=== PATIENT | female | born 1955 | race Caucasian/White ===

== ENCOUNTER 2017-06-20 13:23 | Inpatient (IN) | payer MEDICAID ==
[2017-06-20] MEDS: SOD CHLORIDE 0.9% 1,000 ML IV ×3 (14:40→22:32)
[2017-06-20 14:53] LABS: ADD MAN DIFF? NO
[2017-06-20 14:55] LABS: BASOPHIL # 0.1 10^3/ul (0.0-0.1); BASOPHILS % 0.9 % (0.0-2.0); EOSINOPHILS % 16.5 % (0.0-7.0); HEMATOCRIT 43.4 % (37.0-47.0); HEMOGLOBIN 14.1 g/dl (12.0-16.0); LYMPHOCYTES % 17.2 % (15.0-51.0); MEAN CORPUSCULAR HEMOGLOBIN 27.3 pg (29.0-33.0); MEAN CORPUSCULAR HGB CONC 32.5 g/dl (32.0-37.0); MEAN CORPUSCULAR VOLUME 84.1 fl (82.0-101.0); MEAN PLATELET VOLUME 11.8 fl (7.4-10.4); MONOCYTE # 0.3 10^3/ul (0.3-0.9); MONOCYTES % 5.7 % (0.0-11.0); NEUTROPHIL # 3.5 10^3/ul (1.6-7.5); NEUTROPHILS % 59.4 % (39.0-77.0); PLATELET COUNT 265 10^3/UL (140-415); RED BLOOD COUNT 5.16 10^6/ul (4.20-5.40); RED CELL DISTRIBUTION WIDTH 12.6 % (11.5-14.5)
[2017-06-20 14:55] LABS: WHITE BLOOD COUNT 5.8 10^3/ul (4.8-10.8)
[2017-06-20 15:01] LABS: ADD UMIC YES; UR ASCORBIC ACID NEGATIVE (NEGATIVE); UR BACTERIA FEW /HPF (NONE SEEN); UR BILIRUBIN (Dip) NEGATIVE (NEGATIVE); UR BLOOD (Dip) NEGATIVE (NEGATIVE); UR CLARITY CLEAR (CLEAR); UR COLOR YELLOW (YELLOW); UR GLUCOSE (Dip) 3+ mg/dL (NEGATIVE); UR KETONES (Dip) NEGATIVE (NEGATIVE); UR LEUKOCYTE ESTERASE (Dip) TRACE Leu/ul (NEGATIVE); UR NITRITE (Dip) NEGATIVE (NEGATIVE); UR RBC 1 /HPF (0-5); UR SQUAMOUS EPITHELIAL CELL FEW /HPF (FEW); UR TOTAL PROTEIN (Dip) NEGATIVE (NEGATIVE); UR UROBILINOGEN (Dip) NEGATIVE (NEGATIVE); UR WBC 1 /HPF (0-5)
[2017-06-20 15:17] LABS: ALANINE AMINOTRANSFERASE 27 IU/L (13-69); ALBUMIN 4.7 g/dl (3.3-4.9); ALBUMIN/GLOBULIN RATIO 1.23; ALKALINE PHOSPHATASE 180 IU/L (42-121); ANION GAP 19 (8-16); ASPARTATE AMINO TRANSFERASE 21 IU/L (15-46); BILIRUBIN,INDIRECT 0.2 mg/dl (0-1.1); BILIRUBIN,TOTAL 0.2 mg/dl (0.2-1.3); BLOOD UREA NITROGEN 15 mg/dl (7-20); CALCIUM 10.1 mg/dl (8.4-10.2); CARBON DIOXIDE 31 mmol/L (21-31); CHLORIDE 94 mmol/L (97-110); CREATININE 0.55 mg/dl (0.44-1.00); LIPASE 1063 U/L (23-300); POTASSIUM 4.4 mmol/L (3.5-5.1); SODIUM 140 mmol/L (135-144); TOTAL PROTEIN 8.5 g/dl (6.1-8.1)
[2017-06-20 15:19] LABS: GLUCOSE 504 mg/dl (70-220)
[2017-06-20 15:34] LABS: TROPONIN-I < 0.012 ng/ml (0.00-0.12)
[2017-06-20] MEDS: FENTAnyl 50 MCG/ML VIAL IV (17:56)
[2017-06-20 18:37] LABS: LACTATE DEHYDROGENASE 577 IU/L (313-618)
[2017-06-20] MEDS ORDERED: IOHEXOL 300MG/ML 150 ML BTL (19:16)
[2017-06-20] MEDS ORDERED: SOD CHLORIDE 0.9% 100 ML (19:16)
[2017-06-20] MEDS ORDERED: ACETAMINOPHEN 325 MG TAB PO (20:00)
[2017-06-20] MEDS ORDERED: ONDANSETRON 4 MG INJ IV (20:00)
[2017-06-20] MEDS ORDERED: BISACODYL (EC) 5 MG TAB PO (21:30)
[2017-06-20] MEDS ORDERED: NACL 0.9% 3 ML SYG IV (21:30)
[2017-06-20] MEDS ORDERED: MAGNESIUM HYDROXIDE 30ML CUP PO (21:30)
[2017-06-20] MEDS ORDERED: BISACODYL 10 MG SUPP PR (21:30)
[2017-06-20] MEDS ORDERED: METOCLOPRAMIDE 10 MG INJ IV (21:30)
[2017-06-20] MEDS ORDERED: DOCUSATE SODIUM 100 MG CAP PO (21:30)
[2017-06-20 21:53] LABS: HEMOGLOBIN A1C 12.1 % (0-5.9)
[2017-06-20] MEDS: ACETAMINOPHEN 325 MG TAB PO (22:31)
[2017-06-21] MEDS ORDERED: DEXTROSE 50% 50 ML SYRINGE IV ×2 (04:30)
[2017-06-21] MEDS ORDERED: GLUCOSE GEL 15 GRAM TUBE BUCCAL (04:30)
[2017-06-21] MEDS ORDERED: GLUCOSE GEL 15 GRAM TUBE PO ×2 (04:30)
[2017-06-21] MEDS ORDERED: GLUCAGON 1 MG INJ IM (04:30)
[2017-06-21 05:58] LABS: ADD MAN DIFF? NO
[2017-06-21 06:15] LABS: WHITE BLOOD COUNT 6.2 10^3/ul (4.8-10.8)
[2017-06-21 06:15] LABS: BASOPHIL # 0.1 10^3/ul (0.0-0.1); BASOPHILS % 0.8 % (0.0-2.0); EOSINOPHILS # 0.9 10^3/ul (0.0-0.5); EOSINOPHILS % 14.2 % (0.0-7.0); HEMATOCRIT 39.4 % (37.0-47.0); HEMOGLOBIN 13.3 g/dl (12.0-16.0); LYMPHOCYTES # 1.3 10^3/ul (0.8-2.9); LYMPHOCYTES % 21.5 % (15.0-51.0); MEAN CORPUSCULAR HEMOGLOBIN 27.8 pg (29.0-33.0); MEAN CORPUSCULAR HGB CONC 33.8 g/dl (32.0-37.0); MEAN CORPUSCULAR VOLUME 82.3 fl (82.0-101.0); MEAN PLATELET VOLUME 11.6 fl (7.4-10.4); MONOCYTE # 0.4 10^3/ul (0.3-0.9); MONOCYTES % 6.5 % (0.0-11.0); NEUTROPHIL # 3.5 10^3/ul (1.6-7.5); NEUTROPHILS % 56.7 % (39.0-77.0); PLATELET COUNT 244 10^3/UL (140-415); RED BLOOD COUNT 4.79 10^6/ul (4.20-5.40); RED CELL DISTRIBUTION WIDTH 12.7 % (11.5-14.5)
[2017-06-21] MEDS: SOD CHLORIDE 0.9% 1,000 ML IV (06:32)
[2017-06-21 07:57] LABS: ALANINE AMINOTRANSFERASE 26 IU/L (13-69); ALBUMIN 3.6 g/dl (3.3-4.9); ALBUMIN/GLOBULIN RATIO 1.16; ALKALINE PHOSPHATASE 134 IU/L (42-121); ANION GAP 11 (8-16); ASPARTATE AMINO TRANSFERASE 20 IU/L (15-46); BILIRUBIN,INDIRECT 0.3 mg/dl (0-1.1); BILIRUBIN,TOTAL 0.3 mg/dl (0.2-1.3); BLOOD UREA NITROGEN 8 mg/dl (7-20); CARBON DIOXIDE 28 mmol/L (21-31); CHLORIDE 105 mmol/L (97-110); CREATININE 0.42 mg/dl (0.44-1.00); GLUCOSE 274 mg/dl (70-220); MAGNESIUM 1.7 mg/dl (1.7-2.5); PHOSPHORUS 3.1 mg/dl (2.5-4.9); POTASSIUM 3.8 mmol/L (3.5-5.1); SODIUM 140 mmol/L (135-144); TOTAL PROTEIN 6.7 g/dl (6.1-8.1)
[2017-06-21] MEDS ORDERED: INSULIN GLARGINE [LANtus] 3 ML PEN SC (08:00)
[2017-06-21] MEDS: PREGABALIN 75 MG CAP PO (08:12)
[2017-06-21] MEDS: GABAPENTIN 100 MG CAP PO ×2 (08:12→20:37)
[2017-06-21] MEDS: HYDROCHLOROTHIAZIDE 25 MG TAB PO (08:15)
[2017-06-21] MEDS: ENOXAPARIN 40 MG/0.4 ML SYG SC (08:16)
[2017-06-21] MEDS: INSULIN GLARGINE [LANtus] 3 ML PEN SC (09:47)
[2017-06-21] MEDS: INSULIN ASPART [NOVOLOG] 3 ML PEN SC ×7 (09:47→20:39)
[2017-06-21] MEDS: DEXTROSE 5%-0.45% NACL 1,000 ML IV ×2 (12:25→21:30)
[2017-06-21] MEDS: CIPROFLOXACIN 400MG/D5W 200 ML IVPB ×2 (12:25→20:39)
[2017-06-21] MEDS: metroNIDAZOLE 500 MG/NS (PMX) 100 ML IVPB ×2 (13:36→22:33)
[2017-06-21] MEDS: PANTOPRAZOLE 40 MG INJ IV (13:36)
[2017-06-21] MEDS: FAMOTIDINE 20 MG INJ IV (13:36)
[2017-06-21] MEDS: HYDROCODONE/APAP (5/325) TAB PO (17:27)
[2017-06-21] MEDS: hydrALAzine 20 MG INJ IV (19:55)
[2017-06-21] MEDS: ATORVASTATIN 10 MG TAB PO (20:37)
[2017-06-21] MEDS: ACETAMINOPHEN 325 MG TAB PO (20:45)
[2017-06-22] MEDS: ACCU-CHEK XX (02:00)
[2017-06-22] MEDS: PANTOPRAZOLE 40 MG INJ IV (05:37)
[2017-06-22] MEDS: metroNIDAZOLE 500 MG/NS (PMX) 100 ML IVPB ×3 (05:37→22:26)
[2017-06-22 05:41] LABS: ADD MAN DIFF? NO
[2017-06-22 05:54] LABS: BASOPHILS % 0.4 % (0.0-2.0); EOSINOPHILS # 0.7 10^3/ul (0.0-0.5); EOSINOPHILS % 7.8 % (0.0-7.0); HEMATOCRIT 40.8 % (37.0-47.0); HEMOGLOBIN 13.6 g/dl (12.0-16.0); LYMPHOCYTES # 1.1 10^3/ul (0.8-2.9); LYMPHOCYTES % 12.1 % (15.0-51.0); MEAN CORPUSCULAR HEMOGLOBIN 27.4 pg (29.0-33.0); MEAN CORPUSCULAR HGB CONC 33.3 g/dl (32.0-37.0); MEAN CORPUSCULAR VOLUME 82.3 fl (82.0-101.0); MEAN PLATELET VOLUME 11.5 fl (7.4-10.4); MONOCYTE # 0.4 10^3/ul (0.3-0.9); MONOCYTES % 4.2 % (0.0-11.0); NEUTROPHIL # 6.8 10^3/ul (1.6-7.5); NEUTROPHILS % 75.3 % (39.0-77.0); PLATELET COUNT 261 10^3/UL (140-415); RED BLOOD COUNT 4.96 10^6/ul (4.20-5.40); RED CELL DISTRIBUTION WIDTH 12.8 % (11.5-14.5)
[2017-06-22 06:15] LABS: MAGNESIUM 1.5 mg/dl (1.7-2.5)
[2017-06-22 06:17] LABS: ALANINE AMINOTRANSFERASE 28 IU/L (13-69); ALBUMIN 3.8 g/dl (3.3-4.9); ALBUMIN/GLOBULIN RATIO 1.22; ALKALINE PHOSPHATASE 118 IU/L (42-121); ANION GAP 13 (8-16); ASPARTATE AMINO TRANSFERASE 19 IU/L (15-46); BILIRUBIN,INDIRECT 0.2 mg/dl (0-1.1); BILIRUBIN,TOTAL 0.2 mg/dl (0.2-1.3); BLOOD UREA NITROGEN 9 mg/dl (7-20); CALCIUM 9.3 mg/dl (8.4-10.2); CARBON DIOXIDE 27 mmol/L (21-31); CHLORIDE 99 mmol/L (97-110); CREATININE 0.55 mg/dl (0.44-1.00); GLUCOSE 305 mg/dl (70-220); POTASSIUM 3.7 mmol/L (3.5-5.1); SODIUM 135 mmol/L (135-144); TOTAL PROTEIN 6.9 g/dl (6.1-8.1)
[2017-06-22] MEDS: INSULIN GLARGINE [LANtus] 3 ML PEN SC ×2 (08:10→18:08)
[2017-06-22] MEDS: INSULIN ASPART [NOVOLOG] 3 ML PEN SC ×7 (08:11→21:09)
[2017-06-22] MEDS: DEXTROSE 5%-0.45% NACL 1,000 ML IV ×2 (09:45→17:30)
[2017-06-22] MEDS: CIPROFLOXACIN 400MG/D5W 200 ML IVPB ×2 (09:45→20:59)
[2017-06-22] MEDS: HYDROCHLOROTHIAZIDE 25 MG TAB PO (09:45)
[2017-06-22] MEDS: GABAPENTIN 100 MG CAP PO ×2 (09:45→20:59)
[2017-06-22] MEDS: PREGABALIN 75 MG CAP PO (09:45)
[2017-06-22] MEDS: ENOXAPARIN 40 MG/0.4 ML SYG SC (09:48)
[2017-06-22] MEDS: MAGNESIUM SULFATE 2 GM/50 ML 50 ML IVPB (11:53)
[2017-06-22] MEDS: ONDANSETRON 4 MG TAB PO (11:53)
[2017-06-22] MEDS: HYDROCODONE/APAP (5/325) TAB PO (19:51)
[2017-06-22] MEDS: ATORVASTATIN 10 MG TAB PO (20:59)
[2017-06-23] MEDS: DEXTROSE 5%-0.45% NACL 1,000 ML IV ×3 (01:25→05:07)
[2017-06-23] MEDS: ACCU-CHEK XX (02:00)
[2017-06-23] MEDS: metroNIDAZOLE 500 MG/NS (PMX) 100 ML IVPB ×2 (05:30→14:01)
[2017-06-23] MEDS: PANTOPRAZOLE 40 MG INJ IV (05:30)
[2017-06-23 05:49] LABS: ADD MAN DIFF? NO
[2017-06-23 05:58] LABS: BASOPHILS % 0.7 % (0.0-2.0); EOSINOPHILS # 0.7 10^3/ul (0.0-0.5); EOSINOPHILS % 12.5 % (0.0-7.0); HEMATOCRIT 39.7 % (37.0-47.0); HEMOGLOBIN 13.4 g/dl (12.0-16.0); LYMPHOCYTES # 1.6 10^3/ul (0.8-2.9); LYMPHOCYTES % 28.2 % (15.0-51.0); MEAN CORPUSCULAR HEMOGLOBIN 27.9 pg (29.0-33.0); MEAN CORPUSCULAR HGB CONC 33.8 g/dl (32.0-37.0); MEAN CORPUSCULAR VOLUME 82.5 fl (82.0-101.0); MEAN PLATELET VOLUME 10.9 fl (7.4-10.4); MONOCYTE # 0.6 10^3/ul (0.3-0.9); MONOCYTES % 10.6 % (0.0-11.0); NEUTROPHIL # 2.8 10^3/ul (1.6-7.5); NEUTROPHILS % 47.8 % (39.0-77.0); PLATELET COUNT 246 10^3/UL (140-415); RED BLOOD COUNT 4.81 10^6/ul (4.20-5.40); RED CELL DISTRIBUTION WIDTH 12.4 % (11.5-14.5)
[2017-06-23 05:58] LABS: WHITE BLOOD COUNT 5.8 10^3/ul (4.8-10.8)
[2017-06-23 06:16] LABS: ANION GAP 14 (8-16); BLOOD UREA NITROGEN 10 mg/dl (7-20); CALCIUM 9.1 mg/dl (8.4-10.2); CARBON DIOXIDE 29 mmol/L (21-31); CHLORIDE 98 mmol/L (97-110); CREATININE 0.59 mg/dl (0.44-1.00); GLUCOSE 275 mg/dl (70-220); MAGNESIUM 1.7 mg/dl (1.7-2.5); PHOSPHORUS 3.3 mg/dl (2.5-4.9); POTASSIUM 3.5 mmol/L (3.5-5.1); SODIUM 137 mmol/L (135-144)
[2017-06-23 06:46] LABS: AMYLASE 36 U/L (11-123)
[2017-06-23 06:46] LABS: LIPASE 97 U/L (23-300)
[2017-06-23] MEDS: HYDROCODONE/APAP (5/325) TAB PO (08:20)
[2017-06-23] MEDS: PREGABALIN 75 MG CAP PO (08:20)
[2017-06-23] MEDS: GABAPENTIN 100 MG CAP PO ×2 (08:20→20:48)
[2017-06-23] MEDS: CIPROFLOXACIN 400MG/D5W 200 ML IVPB (08:20)
[2017-06-23] MEDS: HYDROCHLOROTHIAZIDE 25 MG TAB PO (08:21)
[2017-06-23] MEDS: INSULIN ASPART [NOVOLOG] 3 ML PEN SC ×7 (08:29→20:49)
[2017-06-23] MEDS: ENOXAPARIN 40 MG/0.4 ML SYG SC (08:29)
[2017-06-23] MEDS: INSULIN GLARGINE [LANtus] 3 ML PEN SC (08:30)
[2017-06-23] MEDS: ONDANSETRON 4 MG INJ IV (15:31)
[2017-06-23] MEDS: morphine 2 MG INJ IV (16:31)
[2017-06-23] MEDS ORDERED: MAGNESIUM CITRATE 300 ML BTL PO (17:30)
[2017-06-23] MEDS: BISACODYL (EC) 5 MG TAB PO (17:51)
[2017-06-23] MEDS: CIPROFLOXACIN 500 MG TAB PO (17:51)
[2017-06-23] MEDS: POLYETHYLENE GLYCOL 3350 119 GM POWDER PO (19:10)
[2017-06-23] MEDS: MAGNESIUM CITRATE 300 ML BTL PO (19:10)
[2017-06-23] MEDS: metroNIDAZOLE 500 MG TAB PO (20:45)
[2017-06-23] MEDS: ATORVASTATIN 10 MG TAB PO (20:46)
[2017-06-24] MEDS: ACCU-CHEK XX (02:00)
[2017-06-24] MEDS: POLYETHYLENE GLYCOL 3350 119 GM POWDER PO (06:12)
[2017-06-24] MEDS: PANTOPRAZOLE (EC) 40 MG TAB PO (06:12)
[2017-06-24] MEDS: CIPROFLOXACIN 500 MG TAB PO ×2 (06:26→20:33)
[2017-06-24 07:14] LABS: ADD MAN DIFF? NO
[2017-06-24 07:20] LABS: BASOPHIL # 0.1 10^3/ul (0.0-0.1); BASOPHILS % 0.8 % (0.0-2.0); EOSINOPHILS # 0.6 10^3/ul (0.0-0.5); EOSINOPHILS % 9.4 % (0.0-7.0); HEMATOCRIT 37.1 % (37.0-47.0); HEMOGLOBIN 12.6 g/dl (12.0-16.0); LYMPHOCYTES # 1.8 10^3/ul (0.8-2.9); LYMPHOCYTES % 26.7 % (15.0-51.0); MEAN CORPUSCULAR HEMOGLOBIN 27.9 pg (29.0-33.0); MEAN CORPUSCULAR VOLUME 82.1 fl (82.0-101.0); MEAN PLATELET VOLUME 11.4 fl (7.4-10.4); MONOCYTE # 0.6 10^3/ul (0.3-0.9); MONOCYTES % 8.4 % (0.0-11.0); NEUTROPHIL # 3.6 10^3/ul (1.6-7.5); NEUTROPHILS % 54.5 % (39.0-77.0); PLATELET COUNT 240 10^3/UL (140-415); RED BLOOD COUNT 4.52 10^6/ul (4.20-5.40); RED CELL DISTRIBUTION WIDTH 12.6 % (11.5-14.5)
[2017-06-24 07:20] LABS: WHITE BLOOD COUNT 6.6 10^3/ul (4.8-10.8)
[2017-06-24 07:47] LABS: ANION GAP 12 (8-16); BLOOD UREA NITROGEN 10 mg/dl (7-20); CALCIUM 9.4 mg/dl (8.4-10.2); CARBON DIOXIDE 28 mmol/L (21-31); CHLORIDE 101 mmol/L (97-110); CREATININE 0.56 mg/dl (0.44-1.00); GLUCOSE 165 mg/dl (70-220); MAGNESIUM 1.9 mg/dl (1.7-2.5); PHOSPHORUS 4.1 mg/dl (2.5-4.9); POTASSIUM 3.1 mmol/L (3.5-5.1); SODIUM 138 mmol/L (135-144)
[2017-06-24] MEDS: INSULIN ASPART [NOVOLOG] 3 ML PEN SC ×7 (08:15→20:33)
[2017-06-24] MEDS: GABAPENTIN 100 MG CAP PO ×2 (08:31→20:33)
[2017-06-24] MEDS: HYDROCHLOROTHIAZIDE 25 MG TAB PO (08:31)
[2017-06-24] MEDS: metroNIDAZOLE 500 MG TAB PO ×3 (08:31→20:33)
[2017-06-24] MEDS: BISACODYL (EC) 5 MG TAB PO (08:31)
[2017-06-24] MEDS: PREGABALIN 75 MG CAP PO (08:35)
[2017-06-24] MEDS: INSULIN GLARGINE [LANtus] 3 ML PEN SC (08:36)
[2017-06-24] MEDS: ENOXAPARIN 40 MG/0.4 ML SYG SC (08:38)
[2017-06-24] MEDS: POTASSIUM CHLORIDE 100 ML IVPB ×3 (11:49→15:38)
[2017-06-24] MEDS: PROPOFOL 20 ML (17:30)
[2017-06-24] MEDS: FENTAnyl 50 MCG/ML VIAL (17:30)
[2017-06-24] MEDS: MIDAZOLAM 1 MG/ML 2 ML INJ (17:30)
[2017-06-24] MEDS: EPHEDrine SULFATE 50 MG/5 ML SYG (17:51)
[2017-06-24] MEDS: ATORVASTATIN 10 MG TAB PO (20:33)
[2017-06-25] MEDS: ACCU-CHEK XX (02:00)
[2017-06-25] MEDS: CIPROFLOXACIN 500 MG TAB PO (06:00)
[2017-06-25] MEDS: PANTOPRAZOLE (EC) 40 MG TAB PO (06:00)
[2017-06-25 06:29] LABS: ADD MAN DIFF? NO
[2017-06-25 06:32] LABS: BASOPHILS % 0.9 % (0.0-2.0); EOSINOPHILS # 0.7 10^3/ul (0.0-0.5); EOSINOPHILS % 15.4 % (0.0-7.0); HEMATOCRIT 38.5 % (37.0-47.0); HEMOGLOBIN 12.7 g/dl (12.0-16.0); LYMPHOCYTES # 1.3 10^3/ul (0.8-2.9); LYMPHOCYTES % 28.6 % (15.0-51.0); MEAN CORPUSCULAR HEMOGLOBIN 27.4 pg (29.0-33.0); MEAN PLATELET VOLUME 11.2 fl (7.4-10.4); MONOCYTE # 0.5 10^3/ul (0.3-0.9); MONOCYTES % 11.1 % (0.0-11.0); NEUTROPHILS % 43.6 % (39.0-77.0); PLATELET COUNT 224 10^3/UL (140-415); RED BLOOD COUNT 4.64 10^6/ul (4.20-5.40); RED CELL DISTRIBUTION WIDTH 12.7 % (11.5-14.5)
[2017-06-25 06:32] LABS: WHITE BLOOD COUNT 4.7 10^3/ul (4.8-10.8)
[2017-06-25 06:59] LABS: ANION GAP 15 (8-16); BLOOD UREA NITROGEN 9 mg/dl (7-20); CALCIUM 9.2 mg/dl (8.4-10.2); CARBON DIOXIDE 28 mmol/L (21-31); CHLORIDE 102 mmol/L (97-110); CREATININE 0.54 mg/dl (0.44-1.00); GLUCOSE 147 mg/dl (70-220); MAGNESIUM 1.6 mg/dl (1.7-2.5); PHOSPHORUS 3.9 mg/dl (2.5-4.9); POTASSIUM 3.9 mmol/L (3.5-5.1); SODIUM 141 mmol/L (135-144)
[2017-06-25] MEDS: GABAPENTIN 100 MG CAP PO ×2 (08:04→20:28)
[2017-06-25] MEDS: metroNIDAZOLE 500 MG TAB PO (08:04)
[2017-06-25] MEDS: HYDROCHLOROTHIAZIDE 25 MG TAB PO (08:05)
[2017-06-25] MEDS: PREGABALIN 75 MG CAP PO (08:05)
[2017-06-25] MEDS: ENOXAPARIN 40 MG/0.4 ML SYG SC (08:14)
[2017-06-25] MEDS: INSULIN GLARGINE [LANtus] 3 ML PEN SC (08:15)
[2017-06-25] MEDS: INSULIN ASPART [NOVOLOG] 3 ML PEN SC ×5 (08:15→20:33)
[2017-06-25] MEDS: MAGNESIUM OXIDE 400 MG TAB PO (10:53)
[2017-06-25] MEDS: REPAGLINIDE 1 MG TAB PO ×2 (12:44→17:19)
[2017-06-25] MEDS: metFORMIN 500 MG TAB PO ×2 (12:44→17:19)
[2017-06-25] MEDS: ATORVASTATIN 10 MG TAB PO (22:15)
[2017-06-26] MEDS: ACCU-CHEK XX (01:38)
[2017-06-26 06:04] LABS: ADD MAN DIFF? NO
[2017-06-26 06:24] LABS: WHITE BLOOD COUNT 5.1 10^3/ul (4.8-10.8)
[2017-06-26 06:24] LABS: BASOPHIL # 0.1 10^3/ul (0.0-0.1); EOSINOPHILS # 0.9 10^3/ul (0.0-0.5); EOSINOPHILS % 18.4 % (0.0-7.0); HEMATOCRIT 40.3 % (37.0-47.0); HEMOGLOBIN 13.2 g/dl (12.0-16.0); LYMPHOCYTES # 1.6 10^3/ul (0.8-2.9); LYMPHOCYTES % 30.8 % (15.0-51.0); MEAN CORPUSCULAR HEMOGLOBIN 27.3 pg (29.0-33.0); MEAN CORPUSCULAR HGB CONC 32.8 g/dl (32.0-37.0); MEAN CORPUSCULAR VOLUME 83.4 fl (82.0-101.0); MEAN PLATELET VOLUME 11.4 fl (7.4-10.4); MONOCYTE # 0.5 10^3/ul (0.3-0.9); MONOCYTES % 10.4 % (0.0-11.0); NEUTROPHILS % 39.2 % (39.0-77.0); PLATELET COUNT 219 10^3/UL (140-415); RED BLOOD COUNT 4.83 10^6/ul (4.20-5.40); RED CELL DISTRIBUTION WIDTH 12.4 % (11.5-14.5)
[2017-06-26] MEDS: PANTOPRAZOLE (EC) 40 MG TAB PO (06:29)
[2017-06-26 06:56] LABS: ANION GAP 12 (8-16); BLOOD UREA NITROGEN 12 mg/dl (7-20); CALCIUM 9.4 mg/dl (8.4-10.2); CARBON DIOXIDE 31 mmol/L (21-31); CHLORIDE 102 mmol/L (97-110); CREATININE 0.64 mg/dl (0.44-1.00); GLUCOSE 197 mg/dl (70-220); MAGNESIUM 1.6 mg/dl (1.7-2.5); PHOSPHORUS 3.3 mg/dl (2.5-4.9); SODIUM 141 mmol/L (135-144)
[2017-06-26 07:00] LABS: LIPASE 106 U/L (23-300)
[2017-06-26] MEDS: REPAGLINIDE 1 MG TAB PO ×2 (08:22→12:26)
[2017-06-26] MEDS: ENOXAPARIN 40 MG/0.4 ML SYG SC (08:22)
[2017-06-26] MEDS: metFORMIN 500 MG TAB PO (08:22)
[2017-06-26] MEDS: GABAPENTIN 100 MG CAP PO (08:22)
[2017-06-26] MEDS: PREGABALIN 75 MG CAP PO (08:22)
[2017-06-26] MEDS: INSULIN ASPART [NOVOLOG] 3 ML PEN SC ×2 (08:23→12:28)
[2017-06-26] MEDS: HYDROCHLOROTHIAZIDE 25 MG TAB PO (08:25)
[2017-06-26] MEDS: MAGNESIUM SULFATE 2 GM/50 ML 50 ML IVPB (10:50)
== END 2017-06-26 15:00 | disposition home or self-care (01) | DRG 440 ==
LOC: FTE 13:23 → MS2 19:57
PROC: 0DB98ZX Excision of Duodenum, Via Natural or Artificial Opening Endoscopic, Diagnostic (ICD-10-PCS; principal; 2017-06-24 16:55)
PROC: 0DB68ZX Excision of Stomach, Via Natural or Artificial Opening Endoscopic, Diagnostic (ICD-10-PCS; 2017-06-24 16:55)
PROC: 0DBG8ZX Excision of Left Large Intestine, Via Natural or Artificial Opening Endoscopic, Diagnostic (ICD-10-PCS; 2017-06-24 16:55)
PROC: 0DBK8ZX Excision of Ascending Colon, Via Natural or Artificial Opening Endoscopic, Diagnostic (ICD-10-PCS; 2017-06-24 16:55)
DX: K85.90 Acute pancreatitis without necrosis or infection, unspecified (principal); E11.40 Type 2 diabetes mellitus with diabetic neuropathy, unspecified; E11.65 Type 2 diabetes mellitus with hyperglycemia; E78.5 Hyperlipidemia, unspecified; I10 Essential (primary) hypertension; K29.70 Gastritis, unspecified, without bleeding; K52.9 Noninfective gastroenteritis and colitis, unspecified; K63.5 Polyp of colon; Z79.84 Long term (current) use of oral hypoglycemic drugs
CPT/HCPCS: 36415; 74177; 80048; 80053; 81001; 82150; 82962; 83036; 83615; 83690; 83735; 84100; 84484; 85025; 87075; 87177; 88305; 88312; 96374; 99285-25